=== PATIENT | female | born 1975 | race Caucasian/White ===

== ENCOUNTER 2021-07-25 12:33 | Emergency (ER) | payer MEDICAID, OTHER ==
[~2021-07-25] VITALS: Ht 162.6 cm; Wt 90.7 kg
--- NOTE | 2021-07-25 12:38 | ED General ---
General Stated Complaint: CHEST PAIN Source of Information: Patient Exam Limitations: No Limitations History of Present Illness Date Seen by Provider: Jul 25, 2021 Time Seen by Provider: 12:38 Initial Comments Patient is a 46-year-old female presents with substernal chest tightness starting approximately 30 minutes prior to ED arrival. Patient was at home when symptoms began. Symptoms have now resolved. Pain did not radiate to her neck shoulder back or jaw. Patient was not exerting herself time symptoms began. She reports increased emotional stress due to moving homes and listing her house for sale yesterday. She reports abdominal discomfort with nausea and diarrhea last night and drinking 2 cups of coffee prior to chest pain onset this morning the patient is and plans to move from [place] where her was from. Patient denies history of CAD. Cardiac risk factors include obesity and smoking marijuana. No family history of early CAD. The patient does not take medications on a daily basis. She does not drink alcohol smoke cigarettes or use illicit drugs other than recreational marijuana occasion. No other symptoms or complaint Timing/Duration: 1/2 Hour Severity: Moderate Modifying Factors: improves with Other Associated Systoms: Other Allergies and Home Medications Allergies Coded Allergies: No Known Drug Allergies (Verified Allergy, Unknown, 10/07/07) Patient Home Medication List Home Medication List Reviewed: Yes Review of Systems Review of Systems Constitutional: see HPI EENTM: see HPI Respiratory: see HPI Cardiovascular: see HPI Gastrointestinal: see HPI Genitourinary: see HPI Musculoskeletal: see HPI Skin: see HPI Psychiatric/Neurological: See HPI Hematologic/Lymphatic: See HPI Immunological/Allergic: see HPI All Other Systems Reviewed Negative Unless Noted: Yes Physical Exam Vital Signs Vital Signs - First Documented 07/25/21 12:37 Temp 36.5 Pulse 69 Resp 18 B/P (MAP) 147/63 (91) Pulse Ox 100 O2 Delivery Room Air Capillary Refill : Height, Weight, BMI Height: '" Weight: lbs. oz. kg; BMI Method: General Appearance: No Apparent Distress Eyes: Bilateral Eye Normal Inspection, Bilateral Eye PERRL, Bilateral Eye EOMI HEENT: PERRL/EOMI, Normal ENT Inspection, Pharynx Normal Neck: Full Range of Motion, Normal Inspection, Non Tender Respiratory: Chest Non Tender, Lungs Clear Cardiovascular: Regular Rate, Rhythm Gastrointestinal: Non Tender, Soft Back: Normal Inspection Neurologic/Psychiatric: Alert, Oriented x3, No Motor/Sensory Deficits, Normal Mood/Affect Skin: Normal Color Focused Exam Sepsis Stage: Ruled Out Progress/Results/Core Measures Suspected Sepsis SIRS Temperature: Pulse: Respiratory Rate: Laboratory Tests 07/25/21 12:42: White Blood Count 10.1 Blood Pressure / Mean: Laboratory Tests 07/25/21 12:42: Creatinine 0.75, Platelet Count 322, Total Bilirubin 0.3 Results/Orders Lab Results Laboratory Tests Test 07/25/21 12:42 07/25/21 14:40 Range/Units White Blood Count 10.1 4.3-11.0 10^3/uL Red Blood Count 5.07 3.80-5.11 10^6/uL Hemoglobin 14.8 11.5-16.0 g/dL Hematocrit 46 35-52 % Mean Corpuscular Volume 90 80-99 fL Mean Corpuscular Hemoglobin 29 25-34 pg Mean Corpuscular Hemoglobin Concent 33 32-36 g/dL Red Cell Distribution Width 13.7 10.0-14.5 % Platelet Count 322 130-400 10^3/uL Mean Platelet Volume 10.1 9.0-12.2 fL Immature Granulocyte % (Auto) 0 % Neutrophils (%) (Auto) 56 42-75 % Lymphocytes (%) (Auto) 36 12-44 % Monocytes (%) (Auto) 7 0-12 % Eosinophils (%) (Auto) 1 0-10 % Basophils (%) (Auto) 0 0-10 % Neutrophils # (Auto) 5.6 1.8-7.8 X 10^3 Lymphocytes # (Auto) 3.6 1.0-4.0 X 10^3 Monocytes # (Auto) 0.8 0.0-1.0 X 10^3 Eosinophils # (Auto) 0.1 0.0-0.3 10^3/uL Basophils # (Auto) 0.0 0.0-0.1 10^3/uL Immature Granulocyte # (Auto) 0.0 0.0-0.1 10^3/uL Sodium Level 139 135-145 MMOL/L Potassium Level 4.0 3.6-5.0 MMOL/L Chloride Level 100 98-107 MMOL/L Carbon Dioxide Level 28 21-32 MMOL/L Anion Gap 11 5-14 MMOL/L Blood Urea Nitrogen 14 7-18 MG/DL Creatinine 0.75 0.60-1.30 MG/DL Estimat Glomerular Filtration Rate 82 BUN/Creatinine Ratio 19 Glucose Level 108 H 70-105 MG/DL Calcium Level 9.8 8.5-10.1 MG/DL Corrected Calcium 8.5-10.1 MG/DL Total Bilirubin 0.3 0.1-1.0 MG/DL Aspartate Amino Transf (AST/SGOT) 19 5-34 U/L Alanine Aminotransferase (ALT/SGPT) 16 0-55 U/L Alkaline Phosphatase 82 40-136 U/L Troponin I < 0.30 <0.30 NG/ML Total Protein 7.3 6.4-8.2 GM/DL Albumin 4.6 H 3.2-4.5 GM/DL My Orders Orders - ANDREW PADILLA DO Cbc With Automated Diff (07/25/21 12:39) Comprehensive Metabolic Panel (07/25/21 12:39) Troponin I Fs (07/25/21 12:39) Chest 1 View Ap/Pa Only (07/25/21 12:39) Ekg Tracing (07/25/21 12:44) Troponin I Fs (07/25/21 14:26) Vital Signs/I&O 07/25/21 12:37 Temp 36.5 Pulse 69 Resp 18 B/P (MAP) 147/63 (91) Pulse Ox 100 O2 Delivery Room Air Capillary Refill : Departure Communication (Admissions) Patient is remorseful in the emergency department. States she does not wish to but is hurt that her son did not check on her the past 2 days. Mental health assessment performed. Home safety plan put in place inpatient is comfortable with discharge plan with additional mental health support set up this week. Return precautions reviewed. Patient verbalizes understanding agreement with discharge instructions prior to departure. Impression Primary Impression: Mood disorder Additional Impression: Abrasion of right wrist Disposition: 01 HOME, SELF-CARE Condition: Stable Departure-Patient Inst. Decision time for Depature: 15:02 Referrals: PETER THOMPSON DO (PCP/Family) Primary Care Physician Patient Instructions: Seasonal Affective Disorder, Depression Add. Discharge Instructions: Please follow home health safety plan and follow-up with your counselor and mental health support services later this week. Return to the ED if new or worsening symptoms ANDREW PADILLA DO Jul 25, 2021 12:38
[2021-07-25 12:56] LABS: HEMATOCRIT 46 % (35-52); HEMOGLOBIN 14.8 g/dL (11.5-16.0); MEAN CORPUSCULAR HEMOGLOBIN 29 pg (25-34); MEAN CORPUSCULAR HGB CONC 33 g/dL (32-36); MEAN CORPUSCULAR VOLUME 90 fL (80-99); MEAN PLATELET VOLUME 10.1 fL (9.0-12.2); PLATELET COUNT 322 10^3/uL (130-400); WHITE BLOOD COUNT 10.1 10^3/uL (4.3-11.0)
[2021-07-25 12:57] LABS: BASOPHILS % (AUTO) 0 % (0-10); EOSINOPHILS # (AUTO) 0.1 10^3/uL (0.0-0.3); EOSINOPHILS % (AUTO) 1 % (0-10); LYMPHOCYTES # (AUTO) 3.6 X 10^3 (1.0-4.0); LYMPHOCYTES % (AUTO) 36 % (12-44); MONOCYTES # (AUTO) 0.8 X 10^3 (0.0-1.0); MONOCYTES % (AUTO) 7 % (0-12); NEUTROPHILS # (AUTO) 5.6 X 10^3 (1.8-7.8); NEUTROPHILS % (AUTO) 56 % (42-75)
--- NOTE | 2021-07-25 13:05 | Diagnostic Imaging Report ---
INDICATION: Chest pain. TECHNIQUE: Frontal chest obtained at 12:38 p.m. FINDINGS: Heart and mediastinal silhouette are normal in appearance. The lungs are clear. There is no pneumothorax or pleural fluid. IMPRESSION: Negative chest. Dictated by: Dictated on workstation # [id number]
[2021-07-25 13:20] LABS: ALKALINE PHOSPHATASE 82 U/L (40-136); BILIRUBIN,TOTAL 0.3 MG/DL (0.1-1.0); BUN/CREATININE RATIO 19; CALCIUM 9.8 MG/DL (8.5-10.1); CARBON DIOXIDE 28 MMOL/L (21-32); CHLORIDE 100 MMOL/L (98-107); CREATININE SERUM 0.75 MG/DL (0.60-1.30); GFR ESTIMATED 82; GLUCOSE 108 MG/DL (70-105); SODIUM 139 MMOL/L (135-145)
[2021-07-25 13:21] LABS: ALANINE AMINOTRANSFERASE 16 U/L (0-55); ALBUMIN 4.6 GM/DL (3.2-4.5); TOTAL PROTEIN 7.3 GM/DL (6.4-8.2)
[2021-07-25 15:09] VITALS: BP 101/61
--- NOTE | 2021-07-25 15:37 | ED Chest Pain ---
General Chief Complaint: Chest Pain Stated Complaint: CHEST PAIN Nursing Triage Note: Patient states she began having sternal chest pain approximately 45 minutes prior to arrival in the ED. She describes the pain as squeezing and pressure, states it does not radiate. Source: patient Exam Limitations: no limitations History of Present Illness Date Seen by Provider: Jul 25, 2021 Time Seen by Provider: 12:38 Initial Comments Patient is a 46-year-old female presents with chest heaviness/tightness starting 45 minutes prior to ED arrival. Patient was resting at time symptoms began. Pain briefly radiated to her left shoulder. It did not radiate to jaw neck or left arm. Symptoms improved prior to ED arrival. She reports mild diarrhea last night and was up frequently throughout the evening to use the bathroom. Patient reports increased anxiety after placing home for sale yesterday. Patient's spouse 13 years ago and she plans to move from the area he grew up. She reports a lack of social support. She denies shortness of breath cough, sore throat, nausea vomiting abdominal pain. She denies exertional symptoms. She is a non-smoker. No family history of coronary disease under the age 50. She denies drugs and alcohol use with exception of recreational marijuana which she vapes. No other symptoms or complaints. Of note, this medical record is not to replace an incorrect ED medical record for the same visit earlier today that was incorrectly filled out and unable to to be amended correctly. 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 Allergies and Home Medications Allergies Coded Allergies: No Known Drug Allergies (Verified Allergy, Unknown, 10/07/07) Patient Home Medication List Home Medication List Reviewed: Yes Review of Systems Review of Systems Constitutional: see HPI EENTM: See HPI Respiratory: See HPI Cardiovascular: See HPI Gastrointestinal: See HPI Genitourinary: See HPI Musculoskeletal: see HPI Skin: see HPI Psychiatric/Neurological: See HPI Hematologic/Lymphatic: See HPI Past Ancwsot-Iozgil-Nxjjse Hx Patient Social History Tobacco Use?: No Substance use?: Yes Substance type: Marijuana Alcohol Use?: No Pt feels they are or have been: No Physical Exam Vital Signs Vital Signs - First Documented 07/25/21 12:37 Temp 36.5 Pulse 69 Resp 18 B/P (MAP) 147/63 (91) Pulse Ox 100 O2 Delivery Room Air Capillary Refill : Less Than 3 Seconds Height, Weight, BMI Height: '" Weight: lbs. oz. kg; 34.00 BMI Method: General Appearance: No Apparent Distress, WD/WN, Anxious HEENT: PERRL/EOMI, Normal ENT Inspection Neck: Full Range of Motion, Non Tender, Supple Respiratory: Chest Non Tender, Lungs Clear Cardiovascular: Regular Rate, Rhythm Neurologic/Psychiatric: Alert, Oriented x3 Lymphatic: No Adenopathy Focused Exam Sepsis Stage: Ruled Out Progress/Results/Core Measures Results/Orders Lab Results Laboratory Tests Test 07/25/21 12:42 07/25/21 14:40 Range/Units White Blood Count 10.1 4.3-11.0 10^3/uL Red Blood Count 5.07 3.80-5.11 10^6/uL Hemoglobin 14.8 11.5-16.0 g/dL Hematocrit 46 35-52 % Mean Corpuscular Volume 90 80-99 fL Mean Corpuscular Hemoglobin 29 25-34 pg Mean Corpuscular Hemoglobin Concent 33 32-36 g/dL Red Cell Distribution Width 13.7 10.0-14.5 % Platelet Count 322 130-400 10^3/uL Mean Platelet Volume 10.1 9.0-12.2 fL Immature Granulocyte % (Auto) 0 % Neutrophils (%) (Auto) 56 42-75 % Lymphocytes (%) (Auto) 36 12-44 % Monocytes (%) (Auto) 7 0-12 % Eosinophils (%) (Auto) 1 0-10 % Basophils (%) (Auto) 0 0-10 % Neutrophils # (Auto) 5.6 1.8-7.8 X 10^3 Lymphocytes # (Auto) 3.6 1.0-4.0 X 10^3 Monocytes # (Auto) 0.8 0.0-1.0 X 10^3 Eosinophils # (Auto) 0.1 0.0-0.3 10^3/uL Basophils # (Auto) 0.0 0.0-0.1 10^3/uL Immature Granulocyte # (Auto) 0.0 0.0-0.1 10^3/uL Sodium Level 139 135-145 MMOL/L Potassium Level 4.0 3.6-5.0 MMOL/L Chloride Level 100 98-107 MMOL/L Carbon Dioxide Level 28 21-32 MMOL/L Anion Gap 11 5-14 MMOL/L Blood Urea Nitrogen 14 7-18 MG/DL Creatinine 0.75 0.60-1.30 MG/DL Estimat Glomerular Filtration Rate 82 BUN/Creatinine Ratio 19 Glucose Level 108 H 70-105 MG/DL Calcium Level 9.8 8.5-10.1 MG/DL Corrected Calcium 8.5-10.1 MG/DL Total Bilirubin 0.3 0.1-1.0 MG/DL Aspartate Amino Transf (AST/SGOT) 19 5-34 U/L Alanine Aminotransferase (ALT/SGPT) 16 0-55 U/L Alkaline Phosphatase 82 40-136 U/L Troponin I < 0.30 < 0.30 <0.30 NG/ML Total Protein 7.3 6.4-8.2 GM/DL Albumin 4.6 H 3.2-4.5 GM/DL My Orders Orders - ANDREW PADILLA DO Cbc With Automated Diff (07/25/21 12:39) Comprehensive Metabolic Panel (07/25/21 12:39) Troponin I Fs (07/25/21 12:39) Chest 1 View Ap/Pa Only (07/25/21 12:39) Ekg Tracing (07/25/21 12:44) Troponin I Fs (07/25/21 14:26) Vital Signs/I&O 07/25/21 07/25/21 12:37 15:09 Temp 36.5 36.5 Pulse 69 62 Resp 18 18 B/P (MAP) 147/63 (91) 101/61 Pulse Ox 100 99 O2 Delivery Room Air Room Air Blood Pressure Mean: 74 Departure Communication (Admissions) EKG: Normal sinus rhythm, no acute ST-T wave changes. Chest x-ray: No acute cardiopulmonary disease. EKG lab and imaging studies reviewed and reassuring. Patient symptoms are atypical in the setting of increased anxiety state and GI upset. Patient's heart score is 4. Hospital admission offered for further evaluationrecommended and declined by patient. She prefers to follow-up with the PCP. Will place baby aspirin and antiacid with instructions to follow-up with PCP in the next 3 to 5 days. Return precautions reviewed. Patient verbalizes understanding agreement discharge instructions prior to departure Impression Primary Impression: Chest pain Disposition: HOME, SELF-CARE Condition: Stable Departure-Patient Inst. Decision time for Depature: 15:00 Referrals: PETER THOMPSON DO (PCP) Primary Care Physician Patient Instructions: Chest Pain (DC) Add. Discharge Instructions: You were evaluated in the emergency department for chest pain. EKG, lab and imaging studies were performed and are nondiagnostic. The cause of your symptoms is not determined but may be cardiac or GI related. Please take Pepcid twice daily OTC and 2 baby strength aspirin daily and follow-up with your PCP for reevaluation in the next 3 to 5 days. In the he meantime if you develop new or worsening symptoms, return to the emergency department. ANDREW PADILLA DO Jul 25, 2021 15:37
== END 2021-07-25 15:10 | disposition home or self-care (01) ==
LOC: EDUNIT# 12:35 → ER FS 12:37
DX: R07.9 Chest pain, unspecified (principal)
CPT/HCPCS: 36415; 71045; 80053; 84484; 85025; 93005

== ENCOUNTER → 2022-10-15 | Outpatient (CLI) | payer MEDICAID ==
--- NOTE | 2022-10-15 17:13 | Diagnostic Imaging Report ---
EXAMINATION: Left shoulder radiographs, 3 views. COMPARISON: None. HISTORY: 47-year-old female, left shoulder pain. Injury. FINDINGS: The acromioclavicular joint is normally aligned. There are mild acromioclavicular degenerative changes without large undersurface osteophyte. The humeral head is normally positioned relative to the glenoid. The glenohumeral joint space is well-maintained. There is no identified acute fracture. There is no radiopaque foreign body. IMPRESSION: 1. No identified acute bony abnormality of the left shoulder. 2. Mild acromioclavicular degenerative changes without large undersurface osteophyte. Dictated by: Dictated on workstation # [id number]
--- NOTE | 2022-10-15 17:15 | Diagnostic Imaging Report ---
EXAMINATION: Thoracic spine radiographs, 2 views. COMPARISON: None. HISTORY: 47-year-old female, injury. Mid back pain. FINDINGS: There are multilevel mild to moderate disc degenerative changes of the thoracic spine. There is no identified compression deformity or other fracture. The alignment of the thoracic spine is unremarkable. IMPRESSION: 1. No identified acute fracture of the thoracic spine. 2. Multilevel mild to moderate disc degenerative changes of the thoracic spine. Dictated by: Dictated on workstation # [id number]
--- NOTE | 2022-10-15 17:16 | Diagnostic Imaging Report ---
EXAMINATION: Lumbar spine radiographs, 3 views. COMPARISON: None. HISTORY: 47-year-old female, injury. Low back pain. FINDINGS: There is no identified compression deformity or fracture. There are multilevel mild to moderate disc degenerative changes of the lumbar spine. The alignment of the lumbar spine is unremarkable. There are facet degenerative changes bilaterally at L4-L5 and L5-S1 and also in the left at L3-L4. Sequela joints are unremarkable. There are pelvic calcifications consistent with phleboliths. IMPRESSION: 1. No identified acute abnormality of the lumbar spine. 2. Multilevel degenerative changes of the lumbar spine. Dictated by: Dictated on workstation # [id number]
--- NOTE | 2022-10-15 17:21 | Diagnostic Imaging Report ---
EXAMINATION: Right knee radiographs, 4 views. COMPARISON: None. HISTORY: 47-year-old female, right knee pain. Injury. FINDINGS: There is no identified acute fracture. There is no knee joint effusion. The joint spaces are well preserved. There is no identified radiopaque foreign body. IMPRESSION: Unremarkable radiographs of the right knee. Dictated by: Dictated on workstation # [id number]
--- NOTE | 2022-10-15 17:32 | Diagnostic Imaging Report ---
INDICATION: Neck pain. 4 views were obtained FINDINGS: There is mild degenerative disc disease at C5-C6 and C6-C7. There is some straightening of the normal cervical lordosis. The vertebral body heights are well-maintained. The prevertebral soft tissues are within normal limits. The lung apices are clear. The odontoid is intact and the lateral masses are well-aligned. IMPRESSION: Degenerative disc disease at C5-C6 and C6-C7, otherwise unremarkable. Dictated by: Dictated on workstation # [id number]
== END ==
LOC: RAD FS 14:22
PROVIDERS: ATTEND Nurse Practitioner Family
DX: M19.012 Primary osteoarthritis, left shoulder (principal); M47.816 Spondylosis without myelopathy or radiculopathy, lumbar region; M50.323 Other cervical disc degeneration at C6-C7 level; M51.34 Other intervertebral disc degeneration, thoracic region; M25.561 Pain in right knee
CPT/HCPCS: 72040; 72072; 72100; 73030; 73562

== ENCOUNTER → 2022-12-05 | Outpatient (CLI) | payer MEDICAID ==
--- NOTE | 2022-12-05 13:09 | Diagnostic Imaging Report ---
EXAMINATION: US Abdomen complete. TECHNIQUE: Multiple real-time grayscale images were obtained over the right upper quadrant in various projections. HISTORY: Abdominal pain. COMPARISON: None available. FINDINGS: The liver is normal in size. The liver is normal in echogenicity. No focal lesions are seen. The portal vein is patent with hepatopetal flow. Gallbladder is normal without wall thickening or pericholecystic fluid. Sonographic Rangel sign is negative. Common duct measures 13 mm. There is no biliary ductal dilation. The visualized portions of the pancreas are normal. The right kidney is normal without hydronephrosis. The left kidney is normal without hydronephrosis. The aorta and inferior vena cava are normal. The spleen is normal. No ascites is seen. IMPRESSION: 1. Unremarkable abdominal ultrasound. Dictated by: Dictated on workstation # [id number]
== END ==
LOC: RAD FS 07:39
PROVIDERS: ATTEND Nurse Practitioner Family
DX: R10.30 Lower abdominal pain, unspecified (principal); M54.6 Pain in thoracic spine
CPT/HCPCS: 76700